=== PATIENT | female | born 1980 | race Caucasian/White ===

== ENCOUNTER → 2016-10-29 | Outpatient (CLI) | payer MEDICARE, BC ==
[~2016-10-29] MED LIST: ACET-2723 PO; ACYC200C PO; CIPR250S5; ESOM40SU PO; FAMO20TA8 PO; LORA-610 PO; MYCO250C; ONDA4TAB4 PO; PRED5TAB PO; SULF1TAB41 PO; TACR1CAP PO
[2016-10-29 07:05] LABS: BASOPHILS # (AUTO) 0.1 T/MM3 (0-0.2); BASOPHILS % (AUTO) 1.5 % (0-2); EOSINOPHILS # (AUTO) 0.1 T/MM3 (0-0.5); EOSINOPHILS % (AUTO) 2.3 % (0-4); HCT - HEMATOCRIT 40.3 % (36-46); HGB - HEMOGLOBIN 12.5 GM/DL (12-16); LYMPHOCYTES # (AUTO) 1.2 T/MM3 (1-4.8); LYMPHOCYTES % (AUTO) 24.9 % (23-45); MEAN CORPUSCULAR HGB 28.9 UUG (26-34); MEAN CORPUSCULAR VOLUME 93.1 UM3 (80-100); MEAN PLATELET VOLUME 10.5 UM3 (9.4-12.4); MONOCYTES # (AUTO) 0.8 T/MM3 (0-0.8); NEUTROPHILS #(AUTO)-ABSOLUTE 2.6 T/MM3 (1.8-7.7); NEUTROPHILS % (AUTO) 55.3 % (33-66); RED BLOOD COUNT 4.33 M/MM3 (4.00-5.20); WBC - WHITE BLOOD COUNT 4.7 T/MM3 (4.5-11.0)
[2016-10-29 07:11] LABS: BLOOD, URINE 2+ (NEGATIVE); COLOR,URINE YELLOW (YELLOW); LEUKOCYTE ESTERASE ,URINE NEGATIVE (NEGATIVE); NITRITE,URINE NEGATIVE (NEGATIVE); UROBILINOGEN,URINE 0.2 EU/DL (NORMAL)
[2016-10-29 07:14] LABS: ALBUMIN/GLOBULIN RATIO 1.5 RATIO (1.1-2.2); ALKALINE PHOSPHATASE 190 U/L (38-126); ALT (SGPT) 33 U/L (9-52); ANION GAP 12 MEQ/L (5-15); AST (SGOT) 26 U/L (14-36); BUN/CREATININE RATIO 30 RATIO (6-26); CALCIUM 9.4 MG/DL (8.4-10.2); CHLORIDE 106 MEQ/L (98-107); CO2 - CARBON DIOXIDE 23 MEQ/L (22-30); CREATININE 0.9 MG/DL (0.7-1.2); GLOMERULAR FILTRATION RATE 72; GLUCOSE 89 MG/DL (65-110); LDH 326 U/L (313-618); POTASSIUM 4.5 MEQ/L (3.6-5); SODIUM 141 MEQ/L (134-144); TOTAL PROTEIN 6.6 G/DL (6.3-8.2)
[2016-10-29 07:42] LABS: BACTERIA,URINE NEGATIVE (NEGATIVE); RBC,URINE NONE SEEN /HPF (0-3); WBC,URINE NONE SEEN /HPF (0-5)
[2016-10-29 08:05] LABS: CK - CPK 36 U/L (30-135); PHOSPHORUS 4.2 MG/DL (2.5-4.5)
[2016-11-02 00:52] LABS: CHOLESTEROL - BATCH 161 MG/DL (132-199); TRIGLYCERIDES - BATCH 84 MG/DL (35-135)
== END ==
LOC: LAB 06:48 → EEVIPCON 06:48
PROVIDERS: ATTEND Internal Medicine Nephrology
DX: Z94.0 Kidney transplant status (principal); Z79.899 Other long term (current) drug therapy; T86.10 Unspecified complication of kidney transplant
CPT/HCPCS: 36415; 80053; 80197; 81001; 82465; 82550; 82977; 83615; 83735; 84100; 84478; 84550; 85025; 87799

== ENCOUNTER → 2016-11-30 | Outpatient (CLI) | payer MEDICARE, BC | LOC: IMA 12:50 | PROVIDERS: ATTEND Internal Medicine Nephrology | DX: Z79.52 Long term (current) use of systemic steroids (principal); Z94.0 Kidney transplant status ==